=== PATIENT | female | born 1960 | race Caucasian/White ===

== ENCOUNTER 2019-06-11 05:26 | Emergency (ER) | payer SELFPAY ==
[2019-06-11] MEDS ORDERED: Iopamidol 370 76% 100 ML VIAL IV ONE (05:27)
[2019-06-11] MEDS ORDERED: Ondansetron ODT 4 MG TAB ONE (05:50)
[2019-06-11] MEDS ORDERED: Ketorolac Tromethamine 30 MG/ML VIAL ONE (06:16)
[2019-06-11] MEDS ORDERED: cefTRIAXone\\ROCEPHIN 2 GM VIAL ONE (06:17)
[2019-06-11] MEDS ORDERED: Sodium Chloride 0.9% 100 ML ONE (06:18)
[2019-06-11 06:26] LABS: #Basophils 0.2 thou/uL (0.0-0.2); #Lymphocytes 1.9 thou/uL (1.20-3.40); #Monocytes 0.9 thou/uL (0.11-0.59); #Neutrophils 16.5 thou/uL (1.40-6.50); %Basophils 1.2 % (0.0-1.0); %Eosinophils 0.2 % (0.0-10.0); %Lymphocytes 9.9 % (21.0-51.0); %Monocytes 4.6 % (0.0-10.0); %Neutrophils 84.2 % (42.0-75.0); Hemoglobin 12.4 g/dL (12.0-16.0); Mean Corpuscular HGB CONC 33.5 g/dL (32.0-36.0); Mean Corpuscular Hemoglobin 30.5 pg (27.0-31.0); Mean Corpuscular Volume 91.1 fL (78.0-98.0); Mean Platelet Volume 5.7 fL (7.4-10.4); Platelet Count 656 thou/uL (130-400); RBC Distribution Width 12.1 % (11.5-14.5); Red Blood Cell (RBC) Count 4.06 mill/uL (4.20-5.40); White Blood Cell (WBC) Count 19.6 thou/uL (4.8-10.8)
[2019-06-11 06:27] LABS: Bilirubin Negative (Negative); Blood, Urine Negative (Negative); Clarity Hazy (Clear); Glucose, Urine (Dipstick) Negative (Negative); Leukocyte Negative (Negative); Nitrite Negative (Negative); Protein, Urine (Dipstick) Negative (Neg-Trace)
[2019-06-11 06:39] LABS: ALT (SGPT) 55 U/L (8-55); AST (SGOT) 35 U/L (5-34); Albumin 2.9 g/dL (3.5-5.0); Alkaline Phosphatase 479 U/L (40-150); Anion Gap 14 mmol/L (10-20); BUN (Urea Nitrogen) 9 mg/dL (9.8-20.1); Bilirubin, Total 0.6 mg/dL (0.2-1.2); Calc. Creatinine Clearance 0 mL/min (70-130); Calcium 9.1 mg/dL (7.8-10.44); Carbon Dioxide 25 mmol/L (22-29); Chloride 100 mmol/L (98-107); Estimated GFR-MDRD 78; Globulin 4.3 g/dL (2.4-3.5); Glucose 108 mg/dL (70-105); Protein, Total 7.2 g/dL (6.0-8.3); Sodium 135 mmol/L (136-145)
--- NOTE | 2019-06-11 07:40 | RAD ---
PORTABLE CHEST: Date: 06/11/19 An AP portable film at 0548 hours is presented with no prior films available for comparison. There is a dense right lower lobe consolidation consistent with pneumonia. The right hilum is quite l arge and ovoid in shape. It may be either a mass or hilar adenopathy. Less likely would be an enlarge d pulmonary artery. The left lung is clear. The heart is normal in size. IMPRESSION: Right lower lobe pneumonia with a prominent right hilum. This should be followed to complete resoluti on to be sure that there is no additional pathology. POS: HOME
--- NOTE | 2019-06-11 07:58 | CT ---
CT CHEST WITH CONTRAST CLINICAL INDICATION: Cough and congestion. Chest pain. COMPARISON: None FINDINGS: Aorta: The aorta is normal in caliber without evidence of an aortic dissection. Lungs: There is dense consolidation involving the entire right lower lobe. There is an area of decrea sed density seen in the right hilar region, and in this region there is absence of air bronchograms. While this could also be related to a dense area of consolidation secondary to pneumoni a, mass in this region cannot be entirely excluded. Emphysematous changes are seen within the lungs bilaterally predominantly involving the upper lobes. No consolidation or pleural fluid is seen on the left. Mediastinum: There is a mildly prominent lymph node in the subcarinal region measuring 1.7 cm in shor t axis dimension with mild prominence of soft tissue density in the right hilar region probably related to enlarged lymph nodes which may be reactive in origin. Thyroid gland: Normal CT appearance where visualized. Osseous structures: Mild degenerative changes are seen in the spine. No suspicious lytic or sclerotic osseous lesions are identified. Chest wall: No abnormality visualized. Upper abdomen: There is incomplete visualization of a 1.5 cm hypodense structure in the medial segmen t left hepatic lobe. Images suggest this may potentially represent the gallbladder, but this is incompletely evaluated on this exam. IMPRESSION: 1. Dense consolidation involving the entire right lower lobe. Findings could be related to postobstru ctive pneumonitis as there is a lower density area with absence of an bronchograms in the posterior right hilar, and a mass in this region cannot be entirely excluded. However, findings could be relate d to pneumonia or aspiration pneumonitis. Follow-up to resolution is recommended, and pulmonary consultation would be beneficial for further evaluation. 2. Mediastinal and right hilar lymphadenopathy which may be reactive in origin. 3. Incomplete visualization of a hypodense structure in the medial segment left hepatic lobe. This do es appear to be contiguous with a bile duct and may represent the gallbladder. However, follow-up ultrasound or CT examination is suggested to exclude possibility of a cystic lesion within the liver.
[2019-06-11] MEDS ORDERED: methylPREDNISolone Sod Succ/PF 125 MG/2 ML VIAL ONE (08:45)
== END 2019-06-11 08:44 | disposition home or self-care (01) ==
LOC: BURERS 05:26
DX: J44.0 Chronic obstructive pulmonary disease with (acute) lower respiratory infection (principal); J18.1 Lobar pneumonia, unspecified organism; F41.9 Anxiety disorder, unspecified; F32.9 Major depressive disorder, single episode, unspecified; F17.210 Nicotine dependence, cigarettes, uncomplicated; R11.2 Nausea with vomiting, unspecified
CPT/HCPCS: 36415; 71045; 71046; 71260; 80053; 81003; 83605; 85025; 87040; 87086; 94640; 96365; 96375; J0696; J1885; J1956; J2930; J3490; J7620; Q0162; Q9967